=== PATIENT | male | born 1975 | race Two or more races ===

== ENCOUNTER → 2024-07-29 | Outpatient (CLI) | payer BC, MEDICAID, SELFPAY ==
--- NOTE | 2024-07-29 14:30 | XR_ITS ---
Examination: Carotid arterial duplex scan, ultrasound. Date and time of exam: July 29, 2024 at 1441 hours INDICATIONS: Transient ischemic attacks 2 months, reduced carotid pulse on clinical examination 2 months, history transient ischemic attacks also 2006 Technique: Multiple sonographic images have been obtained of the carotid arteries and vertebral arteries, B-mode/grayscale imaging and Doppler spectral analysis and color flow Peak systolic and diastolic velocities have been recorded. Systolic diastolic ratios have been calculated. Findings: Right peak systolic velocities: Distal internal carotid artery peak systolic velocity is 0.7 M/sec Proximal internal carotid artery peak systolic velocity is 0.7 M/sec Carotid bifurcation peak systolic velocity is 1.0 M/sec External carotid artery peak systolic velocity is 0.9 M/sec Vertebral artery flow is antegrade. Left peak systolic velocities: Distal internal carotid artery peak systolic velocity is 0.7 M/sec Proximal internal carotid artery peak systolic velocity is 1.0 M/sec Carotid bifurcation peak systolic velocity is 1.3 M/sec External carotid artery peak systolic velocity is 0.9 M/sec Vertebral artery flow is antegrade Doppler waveform analysis demonstrates no spectral broadening Impression: Right internal carotid artery demonstrates 0-10% stenosis. Left internal carotid artery demonstrates 0-10% stenosis. Incidental note left common carotid artery is diffusely smaller in caliber, transverse dimension 0.5 cm compared to right common carotid artery 1.1 cm, consider CTA carotid arteries post contrast follow-up
== END | disposition home or self-care (01) ==
PROVIDERS: PCP Physician Assistant; Referring Provider Physician Assistant; Visit Provider Physician Assistant
DX: I65.22 Occlusion and stenosis of left carotid artery (principal)
CPT/HCPCS: 93880